=== PATIENT | male | born 1935 | race Caucasian/White ===

== ENCOUNTER → 2023-08-26 10:39 | Outpatient (CLI) | payer MEDICARE, SELFPAY ==
--- NOTE | 2023-08-26 10:42 | DI.RAD.S_ITS ---
PROCEDURE: XR HIP W PEL IF DONE DAVID MIN 4V INDICATIONS: BILATERAL HIP PAIN TECHNIQUE: AP pelvis with lateral view(s) of the bilateral hip(s). COMPARISON: None. FINDINGS: Bones: No fractures or dislocations. Pelvic ring appears intact. No suspicious bony lesions. Bilateral severe hip degenerative change, left greater than right. Left hip joint space obliteration. Severe right hip joint space loss. Bilateral osteophytes. Soft tissues: The visualized bowel gas pattern is normal. No suspicious soft tissue calcifications. IMPRESSION: Bilateral severe hip degenerative change, left greater than right. Dictated by: Adin Akers M.D. on 08/26/2023 at 11:57 Approved by: Adin Akers M.D. on 08/26/2023 at 11:58
--- NOTE | 2023-08-26 10:42 | DI.RAD.S_ITS ---
PROCEDURE: XR LUMBAR SPINE MIN 4V INDICATIONS: BACK PAIN TECHNIQUE: 5 views of the lumbar spine were acquired, including bilateral oblique views. COMPARISON: Outside Facility, RG, MRI L-SPINE W/O CONTRAST, 05/23/2023, 8:52. FINDINGS: Bones: 6 nonrib-bearing vertebrae are present. Minimal dextrocurvature centered at L3. Multilevel facet arthropathy significant multilevel disc height loss.. No vertebral body compression fractures. No suspicious bony lesions. Severe bilateral degenerative hip changes, left greater than right. Soft tissues: Overlying bowel gas pattern is normal. No suspicious soft tissue calcifications. Oblique images: No pars defects. IMPRESSION: 1. 6 non rib-bearing lumbar vertebral bodies are noted. 2. No acute bony abnormality. 3. Lumbar degenerative change 4. Severe bilateral hip degenerative change, left greater than right. Dictated by: Adin Akers M.D. on 08/26/2023 at 11:54 Approved by: Adin Akers M.D. on 08/26/2023 at 11:57
== END ==
PROVIDERS: PCP Family Medicine; Referring Provider Physical Medicine & Rehabilitation; Visit Provider Physical Medicine & Rehabilitation
DX: M47.816 Spondylosis without myelopathy or radiculopathy, lumbar region (principal); M54.9 Dorsalgia, unspecified; M25.551 Pain in right hip; M25.552 Pain in left hip
CPT/HCPCS: 72110; 73522

== ENCOUNTER 2024-04-19 11:35 | Day surgery (SDC) | payer MEDICARE, SELFPAY ==
[2024-04-06 12:04] VITALS: BMI 28.3
[2024-04-19] VITALS (11 sets, daily range): BP systolic 92–145; BP diastolic 50–86; PULSE 56–94; RESP 12–18; TEMP 35.2–36.4; O2SAT 96–100; BMI 28.1
--- NOTE | 2024-04-19 | DI.RAD.S_ITS ---
PROCEDURE: XR HIP W PEL IF DONE LT 2V INDICATIONS: LEFT MICHELLE TECHNIQUE: Intraoperative views of the left hip. COMPARISON: [facility], CR, XR HIP W PEL IF DONE DAVID 3TO4V, 08/26/2023, 10:44. FINDINGS: Bones: Intraoperative views during left hip arthroplasty demonstrates appropriately positioned hardware. IMPRESSION: Intraoperative views during left hip arthroplasty demonstrates appropriately position hardware. Dictated by: Antoine Eaton M.D. on 04/19/2024 at 17:42 Approved by: Antoine Eaton M.D. on 04/19/2024 at 17:43
--- NOTE | 2024-04-19 06:00 | DI.RAD.S_ITS ---
PROCEDURE: XR HIP W PEL IF DONE LT 2V INDICATIONS: MICHELLE TECHNIQUE: 2 view(s) of the hip acquired. COMPARISON: Located Within [facility], CR, XR HIP W PEL IF DONE LT 2V, 04/19/2024, 15:35. FINDINGS: Bones: Patient is status post left hip arthroplasty, with hardware components in expected positions. The hip joint appears congruent. The visualized bony structures appear intact. Soft tissues: Overlying postoperative changes are noted. No suspicious soft tissue densities. IMPRESSION: Expected post-operative appearance of a hip arthroplasty. Dictated by: Brooklynn Teresa MD, PhD on 04/20/2024 at 10:47 Approved by: Brooklynn Teresa MD, PhD on 04/20/2024 at 10:48
[2024-04-19] MEDS: CELECOXIB 200 MG CAPSULE PO (12:53)
[2024-04-19] MEDS: LACTATED RINGERS 1,000 ML 42 ML IV (12:53)
[2024-04-19] MEDS: ACETAMINOPHEN 325 MG TABLET 975 MG PO (12:53)
[2024-04-19] MEDS: VANCOMYCIN 1,000 MG in SODIUM CHLORIDE 0.9% 250 ML 250 MG IV (13:06)
--- NOTE | 2024-04-19 13:33 | PM.PREOP ---
Pre-operative Note Interval Note History & Physical reviewed/Exam performed by Physician: Yes Changes to H&P: No
--- NOTE | 2024-04-19 13:58 | PM.OP.1 ---
Operative Date/Time/Diagnoses Date of procedure: 04/19/24 Time of procedure: 13:59 Pre-op diagnosis: Severe left hip OA Post-op diagnosis: same Procedure & Clinicians Procedure: Left total hip arthroplasty anterior approach Same procedure as scheduled: Yes Indications: The patient has had progressively worsening left hip pain with radiographic changes consistent with arthritis. Non-operative management has failed and the patient has requested total hip replacement. The risks, benefits and alternatives to surgery were discussed with the patient prior to proceeding. Risks discussed included, but were not limited to, failure to relieve pain, leg length discrepancy, dislocation, stiffness, infection, nerve damage, deep venous thrombosis, pulmonary embolism, stroke, coma, heart attack, permanent paralysis and , as well as the potential need for eventual revision of the prosthetic. Surgeon: Orly Murray Brazing Machine Tender: Marisabel Cali Anesthesia Type: General and Spinal Operative Notes Findings: Severe left hip OA, adequate bone, adequate stability Closure Type: primary Specimen(s): none sent Prosthetic devices, grafts, tissues, transplants, or devices: Murray and nephew R3 54, neutral poly liner,one 6.5 mm screw, polar stem standard offset size 3, +0 co ch 36mm Estimated Blood Loss (mL): 250 Blood products transfused: none Procedure in detail: The patient was brought to the operating room. Patient was carefully positioned in the supine position. Time-out was performed and antibiotics were given. Anesthesia was induced. He was positioned in the on the table in order to allow hyperextension of the hip. The left lower extremity was prepped and draped in a standard sterile fashion. An anterior left hip incision was made 1 fingerbreadth lateral to the anterior superior iliac spine and extended distally towards the greater trochanter. Dissection was carried out through skin and subcutaneous tissues. Superficial hemostasis was achieved. The fascia over the tensor fascia ignacio was defined and incised with a knife. Two Allis clamps were used to grasp the fascia. Tensor fascia ignacio was retracted laterally. A gelpi retractor was placed. Dissection was carried out down along the neck. The circumflex vessels were carefully identified and cauterized with the Aqua Mantis. A PA was used during the procedure and was essential for intraoperative retraction and safe implantation of the components. There was good visualization of the femoral neck. A Cobra was placed superior to the neck and the gluteus fibers were carefully stripped from that superior aspect of the capsule. A 2nd retractor was placed along the inferior aspect of the neck. The rectus insertion along the capsule was partially released. A 3rd retractor that was then gently placed over the rim of the acetabulum under the rectus. Capsule was carefully incised and released from the intertrochanteric line circumferentially superior to the mid sagittal line and inferiorly to the mid sagittal line until the lesser trochanter was palpable. A tag stitch was placed both in the superior and inferior limb of the capsular insertion. Along the acetabulum capsule was also released up to the mid sagittal 12:00 position. A portion of the labrum was resected. A saw was used to perform an osteotomy at the level of the intertrochanteric line and the junction of the superior femoral neck leaving approximately 1 finger breath of residual inferior neck above the lesser trochanter. A 2nd cut was made along the femoral neck at the base of the head and a napkin ring of neck was removed. Corkscrew was placed in the femoral head and the head was removed without difficulty. Retractors were then repositioned around the acetabulum. Residual labrum was resected and additional osteophytes were removed. A reamer that was 4 mm below the templated size was placed by hand in the acetabulum and it was reamed to centralize the acetabulum. It was then reamed up to 2 under the templated size and fluoroscopy was brought in to confirm the position of the reaming and depth of reaming. I reamed 1 under the anticipated size. A trial cup was placed and noted that it was appropriately sized and fluoroscopy confirmed position and depth. The component was open and inserted without difficulty fluoroscopic imaging was used to confirm that the cup had been adequately seated and was well positioned. It was further stabilized with a single screw. Neutral poly liner was placed. The cup was tested and noted to be stable. Attention was then directed to the femur. The femur was gently hyperextended additional capsular release was performed as needed in order to allow adequate visualization of the proximal femur with elevation of the femur. Patient was placed in a hyperextended slightly adducted position with maximum external rotation. Box osteotome was used to check for any residual neck as well as sclerotic bone along the trochanter. [place] pepper was placed in the femur. Additional broaching was performed. Canal finder was used to determine the alignment of the canal and position. Size 1 broach was placed. The canal was then appropriately broached up to the templated size as long as there was adequate stability of the broach and serial advancement of the broach without excessive impingement. Specific attention was directed at avoiding varus attempting to direct the distal aspect of the broach more anteriorly and avoiding excessive anteversion. Trial reduction showed acceptable range of motion, good stability, no posterior impingement, mormon of leg length and appropriate lateral shuck. I also hyperflexed the hip and checked that there was no impingement anteriorly and there was good stability with flexion, adduction and internal rotation. Marcaine and Exparel were injected. The stem was placed without difficulty. Repeat trial reduction and x-ray showed acceptable overall position, length, and no evidence of the femoral fracture. Final head was placed. Wound was meticulously irrigated with normal saline. The hip was reduced and additional Exparel and Marcaine were injected. The capsule was closed with interrupted nonabsorbable sutures. The fascia of the tensor was closed with interrupted and running Vicryl. No drain was placed. Any tensor fascia ignacio muscle that appeared to be contused or injured which was a minimal amount was carefully resected. Capsule around the tensor was injected with Exparel and Marcaine. The skin was closed with barbed stitches for the subcutaneous tissue and skin. We also used surgical glue. The wound was dressed sterilely. Brief Betadine soak was also used and was meticulously irrigated with normal saline. Patient was transferred to recovery room in satisfactory condition. Complications: none Post-operative Condition: stable Disposition: same day surgery Plan for aftercare: The patient will be maintained on a standard total hip replacement protocol with weight bearing as tolerated and anterior hip precautions. The patient will receive Aspirin and sequential compression devices for DVT prophylaxis. The patient will be discharged home when safe for the home environment.
[2024-04-19] MEDS: CEFAZOLIN 2 GM/100 ML PREMIX 100 ML IV ×2 (14:15→22:55)
[2024-04-19] MEDS: TRANEXAMIC ACID 1,000 MG VIAL 1000 MG INJ ×2 (14:35→16:40)
--- NOTE | 2024-04-19 14:40 | SUR.OPER ---
Supine on padded Allen table with bilateral legs secured in padded positioning boots and suspended in positioning spars, operative leg in traction per surgeon. Head on one pillow. Arm on non-operative side secured on padded armboard <90 degrees abduction. Arm on operative side padded and resting across chest then secured with tape over sheet. Padded perineal post in place per surgeon.
[2024-04-19] MEDS: BUPIVACAINE 0.25% W/ EPI 30 ML VIAL 60 ML INJ (14:50)
[2024-04-19] MEDS: BUPIVACAINE LIPOSOME 266 MG/20 ML VIAL INJ (14:51)
[2024-04-19] MEDS: ONDANSETRON 4 MG/2 ML INJ IV (17:20)
[2024-04-19] MEDS: LACTATED RINGERS 1,000 ML 100 ML IV (18:42)
[2024-04-19] MEDS: DOCUSATE 100 MG CAPSULE PO (20:05)
[2024-04-19] MEDS: OXYCODONE IR 5 MG TABLET PO (20:05)
[2024-04-19] MEDS: ASPIRIN EC 81 MG TABLET PO (20:05)
[2024-04-19] MEDS: IBUPROFEN 400 MG TABLET PO (23:31)
[2024-04-19] MEDS: ACETAMINOPHEN 325 MG TABLET 650 MG PO (23:31)
[2024-04-20 00:29] VITALS: BP 165/83; PULSE 87; RESP 16; TEMP 36.2; O2SAT 99
--- NOTE | 2024-04-20 02:12 | PC.NURSE ---
NOC: No output from patient by 99. Bladder scan showed ~300mL and therefore did not yet meet parameters for straight cath. As of 211, pt sat at edge of bed 1x and stood at bedside to void (pt voided 200mL - see I&O). Pt tolerated OOB well, denied pain, CMS/sensation intact in L leg. Will continue to monitor.
[2024-04-20 04:23] VITALS: BP 131/87; PULSE 70; RESP 16; TEMP 35.9; O2SAT 98
[2024-04-20] MEDS: CEFAZOLIN 2 GM/100 ML PREMIX 100 ML IV (05:14)
[2024-04-20 06:14] LABS: Hematocrit 38.7 % (41-53); Hemoglobin 13.3 g/dL (13.5-17.5)
[2024-04-20 07:23] VITALS: O2SAT 98
--- NOTE | 2024-04-20 08:08 | PM.DS.1 ---
History of Present Illness History of Present Illness Date Patient Seen: 04/20/24 Time Patient Seen: 08:08 Chief complaint: Left Total Hip Arthroplasty/Anterior Approach Narrative: The patient has had progressively worsening left hip pain with radiographic changes consistent with arthritis. Non-operative management has failed and the patient has requested total hip replacement. The risks, benefits and alternatives to surgery were discussed with the patient prior to proceeding. Risks discussed included, but were not limited to, failure to relieve pain, leg length discrepancy, dislocation, stiffness, infection, nerve damage, deep venous thrombosis, pulmonary embolism, stroke, coma, heart attack, permanent paralysis and , as well as the potential need for eventual revision of the prosthetic. Discharge Providers Provider Discharge Date: 04/20/24 Primary care physician: Corrie Mercedes MD Consults: 04/19/24 06:00 Consult to Anesthesiology Routine Comment: Consulting Provider: Anesthesiologist Reason for consultation: Regional block for post operative pain control Has provider been notified: No 04/19/24 17:46 Consult to Discharge Planning Routine Comment: Consult to Occupational Therapy Evaluate & Treat Comment: Physician Instructions: Evaluate and treat Consult to Physical Therapy Evaluate & Treat Comment: Physician Instructions: post op MICHELLE protocol 04/19/24 19:39 Consult to Discharge Planning Routine Comment: Priority load pass [place] needed, afternoon Discharge provider: Buddy Anderson PA-C Summary Hospital Course Discharge Diagnosis: Severe left hip OA Hospital Course: Procedure: Left total hip arthroplasty anterior approach Same procedure as scheduled: Yes Surgeon: Orly Murray All Around Patternmaker: Marisabel Cali Anesthesia Type: General and Spinal Operative Notes Findings: Severe left hip OA, adequate bone, adequate stability Closure Type: primary Specimen(s): none sent Prosthetic devices, grafts, tissues, transplants, or devices: Murray and nephew R3 54, neutral poly liner,one 6.5 mm screw, polar stem standard offset size 3, +0 co ch 36mm Estimated Blood Loss (mL): 250 Blood products transfused: none Status at Discharge Cognitive/behavioral status at discharge: oriented Functional status at discharge: uses cane/walker Overall status at discharge: patient is back to baseline Time Spent with Patient Time spent: Less than 30 minutes Exam Vital Signs (past 8 hours): - 04/20/24 00:29 04/20/24 04:23 04/20/24 07:23 Temperature 97.1 F L 96.7 F L Pulse Rate 87 70 Respiratory Rate 16 16 Blood Pressure 165/83 H 131/87 Pulse Oximetry 99 98 98 Oxygen Delivery Method Nasal Cannula Oxygen Flow Rate 2 2 2 Oxygen Delivery Method Nasal Cannula Oxygen Flow Rate 2 Narrative Exam Narrative: Patient's pain is controlled with oral medication. Pain is localized to surgical site. Patient declines any new numbness or tingling at the surgical extremity. Patient denies any shortness of breath, dizziness, light-headedness, nausea, vomiting, fever or chills. 5/5 strength in hip flexors, quadriceps, hamstrings, DF, PF, EHL bilaterally. Sensation to light touch intact throughout BLE. Calves soft, compressible, nontender. Dressing placed intraoperatively CDI. Resp Effort & Inspection: normal respiratory effort and able to speak in complete sentences Objective Labs 04/20/24 05:30 Labs: Laboratory Results - last 24 hr 04/20/24 05:30 Hgb 13.3 L Hct 38.7 L PFSH Medical History (Updated 04/06/24 @ 12:18 by Emilia Joel RN) Basal cell carcinoma Lumbar radiculopathy Spinal stenosis Degenerative joint disease of both hips Surgical History (Updated 04/06/24 @ 13:16 by Emilia Joel RN) Hx of hernia repair (1955) Hx of appendectomy (1945) Family History Father Old age Mother No problems noted. Grandmother No problems noted. Social History (Updated 08/26/23 @ 11:36 by Katia Romero LPN) marital status: unmarried,single number of children: 3 household members: significant other education level: other occupational status: unemployed Smoking Status: Never smoker alcohol intake: current Discharge Assessment & Plan Assessment and Plan Assessment: Status post left hip total arthroplasty Plan of Treatment: Discharge to home. Anterior Hip Pre-cautions. Ambulate and weight bear as tolerated with assistive devices. Aspirin 81 mg twice a day for 6 weeks for DVT prevention. Baseline pain relief with acetaminophen 500mg every 4 hours as needed and ibuprofen 400 mg every 4 hours as needed. Patient has been prescribed oxycodone 5 mg every 4 hours as needed for breakthrough pain. Initiate physical therapy in the next 5-10 days. Keep dressing clean and dry. Keep dressing on until first office visit. If dressing becomes dirty or disrupted, replace with appropriate sized dressing. Follow up in clinic in 2 weeks for wound check. Contact clinic if there are any questions or concerns. Discharge Plan Discharge Plan Patient Disposition: Home Provider Discharge Comment: DC pending PT approval Discharge orders & Medications Discharge Orders: Discharge (Order); Ordered 04/20/24 Ordered By: Buddy Anderson Prescriptions: No Action No Known Home Medications Follow up/Referrals: Corrie Mercedes MD [Primary Care Provider] - Diet/Activity/Treatments Diet: Diet as Tolerated Activity: Ambulate multiple times a day. Use a cane or walker as needed. Full weight on leg. Cold/Heat Therapy: Use ice multiple times a day up to 20 minutes at a time. Keep cloth inbetween ice source. Skin/Wound/Dressing Care Report to your healthcare provider any signs of infection, such as:: chills, fever, night sweats, unusual drainage and unusual redness Dressing: May shower. Leave dressing in place until follow up in office. No bathing or otherwise soaking incision. Call the office if the dressing becomes saturated inside. Visit Report/Discharge Packet Instructions: DI for Hip Replacement Stand Alone Forms: Patient Portal/API, Surgery Discharge Discharge Data Primary Care Provider: Corrie Mercedes Attending Provider: Orly Murray VTE Deep Vein Thrombosis/Pulmonary Embolism Present on Admission: No
[2024-04-20 08:13] VITALS: BP 137/77; O2SAT 92
[2024-04-20 08:14] VITALS: PULSE 92; RESP 18; O2SAT 98
[2024-04-20] MEDS: DOCUSATE 100 MG CAPSULE PO (08:20)
[2024-04-20] MEDS: IBUPROFEN 400 MG TABLET PO (08:20)
[2024-04-20] MEDS: ACETAMINOPHEN 325 MG TABLET 650 MG PO (08:21)
[2024-04-20] MEDS: ASPIRIN EC 81 MG TABLET PO (08:21)
[2024-04-20] MEDS: polyethylene glycoL 3350 17 GM POWD.PACK PO (08:22)
--- NOTE | 2024-04-20 08:30 | OT.IP.EVAL ---
Current Diagnoses Unilateral primary osteoarthritis, left hip (04/19/24) Surgery Performed Operation Date: 04/19/24 13:45 Actual Procedures p Total Hip Arthroplasty/Anterior Approach(Left) - Orly Murray MD Past Medical History (Last Updated 04/06/24 @ 12:18 by Emilia Joel, RN) Basal cell carcinoma Degenerative joint disease of both hips Lumbar radiculopathy Spinal stenosis Surgical History (Last Updated 04/06/24 @ 13:16 by Emilia Joel, RN) Hx of appendectomy (194) Hx of hernia repair (1955) Occupational Therapy Inpatient Evaluation/Re-Eval M1 PT/OT-IP Prior Functional Status Start: 04/20/24 10:02 Freq: NEEDED Status: Active Protocol: Document 04/20/24 10:02 [facility] (Rec: 04/20/24 10:12 [facility] [id number]) Medical Review Prior Functional Status Communication I Mobility and Gait Use of FWW Activities of Daily Living and IADL's Able to do ADL and IADL needs but had pain. Social History Household Members significant other Living Arrangements House Number of Floors (Floors) One Floor Number of Stairs To Enter/Railing? NO steps to enter. Home Environment Standard Height Toilet,Walk in Shower Home Equipment Front Wheel Walker,Hand Held Shower,Visual Designer,Grab Bars Near Toilet,Grab Bars In Shower Additional Social History Comment Pt's and daughter to assist pt. M2 OT-IP Current Condition Start: 04/20/24 10:02 Freq: Status: Active Protocol: Document 04/20/24 10:02 [facility] (Rec: 04/20/24 10:12 [facility] [id number]) Occupational Therapy Current Condition Current Condition Evaluation Date 04/20/24 Treatment Diagnosis S/P L MICHELLE anterior approach. Diagnosis Onset Date 04/19/24 Post Operative Precautions Other Precautions DO not hyperextend Left hip M3 OT- IP Subjective and Pain Start: 04/20/24 10:02 Freq: Status: Active Protocol: Document 04/20/24 10:02 [facility] (Rec: 04/20/24 10:12 [facility] [id number]) OT- Subjective Occupational Therapy Visit Type Type Initial Evaluation Visit Start Time 08:30 Visit Stop Time 09:10 Occupational Therapy Visit Comments Patient Comments Pt agreed to get up and use the toilet. Patient/Caregiver Goals TO go home. OT Pain Assessment Pain When Pain Assessed At Rest Pain Present Pain Present Pain Reported Location Left Hip Intensity 5 Scale Used Numeric (0 - 10) M4 OT- IP ADL's Start: 04/20/24 10:02 Freq: Status: Active Protocol: Document 04/20/24 10:02 [facility] (Rec: 04/20/24 10:12 [facility] [id number]) OT FDR-Fhjl-[id number] General Evaluation Self-Feeding Ability Independent OT ADL-Grooming General Evaluation Grooming Ability Independent Areas Needing Assistance Retrieving/Set-up of Grooming Items Comments OT Grooming Comments while standing with FWW OT ADL-Oral Care General Eval Oral Care Ability Independent Areas of Assistance Retrieving/Set-Up of Items Comments Oral Care Comments WHile standing with FWW OT ADL-Dressing General Eval Lower Body Dressing Ability Maximum Assistance Areas Needing Assistance Socks Comments OT Dressing Comments Educated to dressing the LLE first and take out last. ALso to be careful of excessive external rotation for clothing needs and best to use LB dressing equipment or have assist. OT ADL-Toileting Comments OT Toileting Comments Able to practice use of fww over the toilet while urinating. OT ADL-Bathing Comments OT Bathing Comments Pt states to get a shower chair. Spoke of care of dressing needs while showering . M5 OT- IP IADL's Start: 04/20/24 10:02 Freq: Status: Active Protocol: Document 04/20/24 10:02 [facility] (Rec: 04/20/24 10:12 [facility] [id number]) OT-Instrumental Activities of Daily Living Home Safety Awareness Awareness of Need for Assistance at Home Good Awareness Medication Management Medication Management Comments Pt's to asisst as needed. Money Management Money Management Comments Pt's to asisst as needed. Meal Preparation Meal Preparation Caregiver Provides Assist Fiction Writer Fiction Writer Caregiver Provides Assist M6 OT- IP Functional Cognition Start: 04/20/24 10:02 Freq: Status: Active Protocol: Document 04/20/24 10:02 [facility] (Rec: 04/20/24 10:12 [facility] [id number]) Cognitive Factors Limiting Selfcare Function Cognitive Ability Level of Alertness Alert Patient Orientation Name,Age,Birthday,Month,Date, Year,Day of Week,Place, Situation Attention Span Ability Capable of Focused Attention, Capable of Sustained Attention Ability to Follow Commands Able to Follow One Step Commands Cognitive Comments Cognitive Assessment Comments Pt mainly just needing vc for FWW safety to push up from surfaces while coming to stand and to push down on the FWW while walking. OT- Vision and Hearing OT- Hearing Assessment OT- Hearing Assessment WFL OT- Vision Assessment Visual Acuity WFL Visual Attentiveness WFL Occular Pursuits WFL M7 OT- IP Mobility and Balance Start: 04/20/24 10:02 Freq: Status: Active Protocol: Document 04/20/24 10:02 [facility] (Rec: 04/20/24 10:12 [facility] [id number]) OT- Bed Mobility Assessment Supine to Sit Supine to Sit Assist Contact Guard Assistance Sit to Supine Sit to Supine Assist Standby Assistance OT-Transfer Assessment Sit to and From Stand Sit to and from Stand Standby Assistance,Contact Guard Assistance Transfers Transfer Ability Standby Assistance Technique Transfer Destination Bed,Chair,Toilet Devices Transfer Assistive Devices Gait Belt,Front Wheeled Walker Comments Mobility Comments Pt use of momentum to get up from the bed and needing assist to get his trunk upright. CGA to stand and otherwise SBA/CGAwhen up on his feet with the FWW. OT- Balance Assessment Sitting Balance and Reactions Static Sitting Balance Ability Good Dynamic Sitting Balance Ability Good Standing Balance and Reactions Static Standing Balance Ability Good Dynamic Standing Balance Ability Fair M8 OT- IP Objective Assessments Start: 04/20/24 10:02 Freq: Status: Active Protocol: Document 04/20/24 10:02 [facility] (Rec: 04/20/24 10:12 [facility] [id number]) OT Gross Range of Motion Upper Extremity Range of Motion ROM Impairments WFL for needs. OT Strength Upper Extremity Strength Assessment Within Functional Limits M9 OT- IP Assessment and Plan Start: 04/20/24 10:02 Freq: Status: Active Protocol: Document 04/20/24 10:02 [facility] (Rec: 04/20/24 10:12 [facility] [id number]) OT Summary Assessment and Plan Potential Rehabilitation Potential Excellent Analytic Complexity at Evaluation Low Summary OT Impairments Pain,Strength,Balance, Functional Mobility,Dressing, Toileting,Bathing,Toilet Transfers,Shower Transfers, Activity Tolerance Progress Towards Goals Progressing Toward Goals Assessment Summary Pt low complexity and main barriers are pain, needing vc for FWW safety and transitions . Pt to go home when medically stable with family and have outpt PT. Goals Dressing Goal Independent,Visual Designer Toileting Goal Independent Bathing Goal Standby Assistance Toilet Transfer Goal Independent Shower Transfer Goal Standby Assistance Days to Meet Goals 5 Frequency of Treatment Other frequency 5x/week Treatment Plan OT Treatment Plan ADL Training,Functional Mobility,Patient/Family Education,Discharge Planning Discharge Recommendations OT Discharge Recommendations Home with 24/ Assist Available,Outpatient PT Home Equipment Needs shower chair Transportation Needs at Discharge Private Vehicle
--- NOTE | 2024-04-20 09:27 | CM.DANOTE ---
Initial DCP Assessment Visit Note Reviewed EMR and team rounds for status updates. Met with pt at bedside to introduce self and role, pt was found to be alert/oriented, eating his breakfast. He states that his pain is well controlled, and that his and dtr are here to transport him home later today after he was worked with PT. Pt lives modified independently in his own home with his in Thursday. REGISTER REPAIRER will provide them with a Medical Priority Boarding Pass due to no reservations available for today's [place] sailings to [facility]. Pt denies any CM d/c needs other than the ferry pass at this time. Payor: Medicare Attending: Dr. Murray Pt is a 89 year-old M post-op day 1 from a L-total hip arthroplasty surgery. Pt did not have have postoperative complications, he has good pain control, and has a plan for both Ortho post-op f/u, as well as OP PT visits. Pt has a hx of worsening L-hip pain despite having had several pain injections that only provided short-lived benefits. He uses both a cane and a walker at baseline for mobility, and has all other DME at home for continued recovery needs. No further DCP needs are identified at this time. Discharge Planning/Care Management Advanced directive, confirm from FAMILY Start: 04/19/24 17:53 Freq: Q24H Status: Active Protocol: Document 04/19/24 17:53 CEW (Rec: 04/19/24 19:37 CEW [id number]) Advance Directive, confirm on record Time 17:00 Person contacted pt Copy received No Pre-Anesthesia Assessment Start: 04/06/24 12:04 Freq: Status: Complete Protocol: Document 04/06/24 12:04 LB (Rec: 04/06/24 13:31 LB [id number]) Pre-Anesthesia Assessment PAC Comment 04/06/24 Phone assessment. Patient Information Reviewed Via Phone Assessment Assessment Completed With Patient Diagnostic Results BMP/CMP,CBC,EKG Comment Outside results 02/18/24. Primary Care Provider Corrie Mercedes Seen Specialist in Last 12 Months Yes Specialist Seen Orthopedist Primary Language Kazakh Preferred Language Kazakh Loss Prevention Leader Required No Height 172.72 cm Weight 84.368 kg Body Mass Index (BMI) 28.3 Hearing Ability Normal Visual Impairment No Limitations Visual Assist None Dentition Type Teeth, Natural Present Barriers to Learning None Other Aids No Hx Anesthesia Reactions No Hx Family Anesthesia Reaction No Hx Malignant Hyperthermia No Hx Blood Transfusions No Anesthesia Review Requested No Figure Skater Yes: SO not physically able to help with post op care. Additional comment Pt requesting in-patient stay as he does not have help post op. alcohol intake current alcohol intake frequency a few times a week Smoking Status Never smoker Substance Use Type [#R] does not use Pain Present Pain Reported Comment Left hip. Musculoskeletal Symptoms Difficulty Walking,Joint Pain Patient is completely paralyzed or No completely immobile Prosthesis or Orthotic Device Front Wheel Walker Mental Status Oriented to own ability Comment Will bring walker. Is patient on oxygen? No Does patient have DENNIS/SOB No Hx Sleep Apnea No Currently Taking a Beta Yris No Can You Climb a Flight of Stairs Without Yes SOB Hx Chest Pain No Hx SOB No Hx Syncope or Dizziness No Anti-Coagulant Therapy No Has a Computer Security Specialist No Cardiac Testing No Dysphagia No Gastrointestinal Symptoms None Bladder Pattern Nocturia Urinary Catheter Present No Hx Urinary Self Catheterization No Diabetes No HgbA1C 5.9 Date 02/18/24 Hx Drug Resistant Organism No Presence of External or Internal Medical No Devices Have you had any close contact with No someone diagnosed with COVID-19? Are you experiencing any of these No symptoms symptoms? Comment Denies covid last 8 weeks. Marital Status Life Partner Lives With significant other Current Living Arrangements House Number of Floors (Floors) One Floor Number of Stairs To Enter/Railing? No stairs. Support System None Comment Looking into a caregiver/home care. Does the Patient Have Assistance After No Surgery Patient Discharge Plan Description Return Home Feels Safe in Current Environment Yes Do you have a plan to hurt yourself or No Plan others? Do You Have Any Spiritual Beliefs That No May Affect Your HC Choices? Do You Have Any Cultural Practices That No May Affect Your HC Choices? Emergency Contact Name Esperanza Linares - life partner Emergency Contact Advance Directives? Yes Advance Directives on File No Requested Patient Bring Advanced Yes Directives DOS PAC Instructions Assistance for 24 hours post- op,Durable medical equipment, Nasal antibiotic,No ETOH/ petroleum product on skin DOS, NPO,Post-op transportation,Pre -surgical wash,Sturdy shoes/ comfortable clothes,Do not bring valuables and remove jewelry
--- NOTE | 2024-04-20 10:20 | PT.IIE ---
Current Diagnoses Unilateral primary osteoarthritis, left hip (04/19/24) Surgery Performed Operation Date: 04/19/24 13:45 Actual Procedures p Total Hip Arthroplasty/Anterior Approach(Left) - Orly Murray MD Surgical History (Last Updated 04/06/24 @ 13:16 by Emilia Joel, RN) Hx of appendectomy (1946) Hx of hernia repair (1955) Medical History (Last Updated 04/06/24 @ 12:18 by Emilia Joel, RN) Basal cell carcinoma Degenerative joint disease of both hips Lumbar radiculopathy Spinal stenosis Physical Therapy Inpatient Evaluation/Re-Eval M1 PT/OT-IP Prior Functional Status Start: 04/20/24 12:14 Freq: NEEDED Status: Active Protocol: Document 04/20/24 10:20 AB (Rec: 04/20/24 12:28 AB [id number]) Medical Review Prior Functional Status Medical History Reviewed Yes Communication able to make needs known Mobility and Gait pt stated that he was modified independent with all mobilities and ambulation using a 4WW Activities of Daily Living and IADL's per OT note: Able to do ADL and IADL needs but had pain. Social History Household Members spouse Living Arrangements House Number of Floors (Floors) One Floor Number of Stairs To Enter/Railing? no steps to enter Home Environment Standard Height Toilet,Walk in Shower Home Equipment Four Wheel Walker,Hand Held Shower,Grab Bars Near Toilet, Grab Bars In Shower Additional Social History Comment pt stated that his daughter will be staying with them for ~ 10 days to help and they also hired a caregiver for 7-8 hrs daily for ~ 1 week M2 PT-IP Current Condition Start: 04/20/24 12:14 Freq: NEEDED Status: Active Protocol: Document 04/20/24 10:20 AB (Rec: 04/20/24 12:28 AB [id number]) Physical Therapy Current Condition Current Condition Evaluation Date 04/20/24 Treatment Diagnosis s/p L MICHELLE anterior; difficulty in walking Onset Date 04/19/24 M3 PT-IP Subjective Start: 04/20/24 12:14 Freq: NEEDED Status: Active Protocol: Document 04/20/24 10:20 AB (Rec: 04/20/24 12:28 AB [id number]) Subjective Physical Therapy Visit Type Type Initial Evaluation Visit Start Time 10:20 Visit Stop Time 11:00 Number of COMMUNITY ARTIST Visits 0 Physical Therapy Visit Comments Patient Comments agreeable to do PT Therapy Pain Assessment Pain When Pain Assessed At Rest Pain Present Pain Present Pain Reported Location Left Hip Intensity 4 M4 PT-IP Mobility and Gait Start: 04/20/24 12:14 Freq: NEEDED Status: Active Protocol: Document 04/20/24 10:20 AB (Rec: 04/20/24 12:28 AB [id number]) PT-Bed Mobility Assessment Supine to Sit Supine to Sit Standby Assistance,Bedrails PT-Transfer Assessment Sit to and From Stand Sit to and from Stand Standby Assistance,Contact Guard Assistance,1 Person Assistance,Use of Upper Extremities Equipment Transfer Assistive Device Gait Belt,Front Wheeled Walker ,4 Wheeled Walker Orthotic/Prosthetic Devices or Brace: No Transfers Transfer Destination Toilet Transfer Technique ambulated Transfer Ability Level of Assist Standby Assistance Comments Mobility Comments pt in bed and agreeable to do PT. obtained PLOF and home set up. pt completed supine to sit SBA using bed rail and needing increase time to complete. pt stated that his and daughter can assist him. sit to stand CGA and ambulated in room using FWW ~ 25 ft SBA to CGA. pt requested to use the toilet. sit to stand from chair SBA and ambulated to the toilet using 4WW SBA and cues for safety and steadiness. pt was able to stand using grab bars for support. ambulated to the sink using 4WW SBA. able to maintain standing leaning on counter SBA while completing handwashing. pt ambulated more in room using 4WW ~ 40 ft . pt sat on the chair. positioned pt on the chair. call light and table placed within reach. pt without further concerns. Left pt with nurse. Gait Assessment Gait Gait Assistance Required: Standby Assistance Distance (Feet) 40 Able to Maintain Weight Bearing Status Yes During Gait Assistive Devices Assistive Device Gait Belt,Front Wheeled Walker ,4 Wheeled Walker Orthotic/Prosthetic Devices or Brace: No Gait Deviations General Gait Pattern Antalgic Factors Limiting Gait Function Factors Limiting Gait Function Decreased Activity Tolerance, Decreased Strength,Limited Range of Motion,Pain,Poor Balance,Poor Safety Awareness PT-Balance Assessment Sitting Balance and Reactions Static Sitting Balance Ability Normal Dynamic Sitting Balance Ability Good Standing Balance and Reactions Static Standing Balance Ability Good Dynamic Standing Balance Ability Fair Device Used FWW M5 PT-IP Objective Assessments Start: 04/20/24 12:14 Freq: NEEDED Status: Active Protocol: Document 04/20/24 10:20 AB (Rec: 04/20/24 12:28 [id number]) Orientation Orientation/Cognition Level of Alertness Alert Orientation Name,Place,Situation Language Function Ability Hard of Hearing Safety Awareness Decreased Safety Awareness Memory Description No Deficits Noted Strength Lower Extremity Strength Assessment Left Impaired Hip 3+/5 Knee 4-/5 Coordination Assessment Gross Coordination Gross Coordination WNL Sensation Assessment Sensation Gross Sensation WNL Muscle Tone Muscle Tone WNL Yes M6 PT-IP Treatment Start: 04/20/24 12:14 Freq: NEEDED Status: Active Protocol: Document 04/20/24 10:20 AB (Rec: 04/20/24 12:28 [id number]) Physical Therapy Treatment Exercises Exercises Heel Slides Education Education Provided Precautions,Weight Bearing Status,Post-Op Packet,Safety M7 PT-IP Assessment and Plan Start: 04/20/24 12:14 Freq: NEEDED Status: Active Protocol: Document 04/20/24 10:20 AB (Rec: 04/20/24 12:28 [id number]) PT Summary Assessment and Plan Potential Rehabilitation Potential Good Status of Condition at Evaluation Evolving Summary Impairments Pain,ROM,Strength,Balance, Coordination,Sensation,Tone, Cognition,Bed Mobility, Transfers,Gait,Activity Tolerance Assessment Summary pt is an 89 y/o M s/p L MICHELLE anterior approach POD 1. pt with L anterior hip precautions and is WBAT. pt requiring SBA with mobility using 4WW and cues for safety. pt plans to go home and has his spouse, daughter and a caregiver that can assist him. pt has outpt PT set up. Goals Bed Mobility Goal Independent Transfer Goal Independent,Four Wheeled Walker Gait Goal Independent,Four Wheel Walker Gait Distance 300 Days to Meet Goals 5 Frequency of Treatment Frequency Of Treatment Twice a Day Treatment Plan Physical Therapy Treatment Plan Bed Mobility Training,Transfer Training,Gait Training, Therapeutic Exercise,Balance Retraining,Post Op Education, Discharge Planning,Hot or Cold Pack,Neuromuscular Re-ed, Coordination Retraining,Manual Therapy Precautions Anterior Hip Precautions No Hip Extension,No Hip External Rotation Weight Bearing Status Weight Bearing Status Weight Bear as Tolerated Allowed Weight Bearing Amount (enter % LLE WBAT or #) (%) Recommendations To Nursing Amount of Assist Needed Standby Assistance Discharge Recommendations PT Discharge Recommendations Home with Assistance, Outpatient PT Transportation Needs at Discharge Private Vehicle - PT assist 1PA
[2024-04-20 12:35] VITALS: BP 129/65; PULSE 94; RESP 16; TEMP 36.3; O2SAT 96
== END 2024-04-20 12:52 | disposition home or self-care (01) ==
LOC: OR 11:37 → AC 11:38
PROVIDERS: PCP Family Medicine; Referring Provider Orthopaedic Surgery; Visit Provider Orthopaedic Surgery
PROC: (CPT 27130; principal; 2024-04-19 13:45)
DX: M16.12 Unilateral primary osteoarthritis, left hip (principal); M25.752 Osteophyte, left hip
CPT/HCPCS: 27130; 36415; 73502; 76000; 85014; 85018; 97162; 97165; 97530; 97535; C1776; J0666; J0690; J2250; J2405; J2704; J3010